=== PATIENT | female | born 1950 | race American Indian/Alaskan Native ===

== ENCOUNTER 2016-04-30 15:12 | Emergency (ER) | payer BC, MEDICAID, MEDICARE, OTHER ==
[2016-04-30 15:34] VITALS: BP 128/84
[2016-04-30] MEDS ORDERED: Acetaminophen/HYDROcodone 325-5 MG Tab PO ONE (16:20)
--- NOTE | 2016-05-01 09:32 | CR ---
INDICATION: FOOSH injury, pain right hand and wrist dorsum. RIGHT HAND: Three views of the right hand revealed somewhat demineralized appearance. There are suggested some mild degenerative changes with subchondral cystic change at the lunate - radiolunate joint. An acute fracture or dislocation was not identified. IMPRESSION: 1. No acute fracture or dislocation. 2. Osteoarthritis radiolunate joint. 3. Probable osteoporosis with demineralization suggested - correlate clinically. MTDD
--- NOTE | 2016-05-02 11:58 | ER ---
DATE SEEN: 04/30/2016 TIME SEEN: The patient was seen at 1535 hours. HISTORY OF PRESENT ILLNESS: This is a 65-year-old woman who was on the ice yesterday, slipped and fell, and the dorsum of her hand struck the ground with an outstretched hand injury, SANJANA. The patient has mild swelling in the dorsum of the hand, mild wrist discomfort, moderate hand discomfort. No compromised sensation. No decreased range of motion in her wrist or hand. She is right hand dominant. PAST MEDICAL HISTORY: No other serious illnesses. The patient is not taking medicines. No diabetes, heart disease, high blood pressure, asthma, or other serious illnesses. SOCIAL HISTORY: She is single. She is a . She does not smoke. REVIEW OF SYSTEMS: Otherwise, negative. ALLERGIES: She has allergies to naproxen, which causes swollen tongue, and ibuprofen does the same. PHYSICAL EXAMINATION: GENERAL: Very pleasant heartwarming woman, who is in no acute distress. HEENT: PERRLA intact. Pharynx without abnormality. LUNGS: Clear to auscultation. HEART: S1, S2. No murmur. ABDOMEN: Soft. No hepatosplenomegaly. EXTREMITIES: Right upper extremity, mild dorsum swelling to the hand, metacarpals 2, 3, 4, 5, mostly 2, 3, 4 and MP joints 2, 3, and 4. Range of motion of finger is normal. Capillary refill is normal. Radial and ulnar pulses negative. Mild discomfort to palpation to the dorsum of hand. No deformity noted in the bony structures. No pain in the palmar surface of the hand. Show Jumping In[employer] is intact but slightly decreased because of the discomfort she experienced. LABORATORY DATA: X-rays are negative. No evidence for fracture. ASSESSMENT: Contusion of hand with bruised soft tissues dorsum of hand. PLAN: Reassured. Use Christian bandage to diminish the swelling and help to decrease further swelling. When she is using her arm more extensively, she has a wrist splint to stabilize her wrist. Follow up with doctor in 1 to 2 weeks as needed. Use Tylenol as needed 1000 mg every 6 hours and/or less. Elevate the hand above her heart. Intermittently can use cool packs to diminish the swelling. /[id number] LS/ANGEL JACKSOND
== END 2016-04-30 16:24 | disposition home or self-care (01) ==
LOC: FB.ED 15:12
DX: S60.221A Contusion of right hand, initial encounter (principal); Z88.6 Allergy status to analgesic agent; Z88.8 Allergy status to other drugs, medicaments and biological substances; W00.0XXA Fall on same level due to ice and snow, initial encounter
CPT/HCPCS: 73130; 99282; 99284; A9270

== ENCOUNTER 2016-07-27 16:36 | Emergency (ER) | payer MEDICARE, MEDICAID ==
[2016-07-27] MEDS ORDERED: EPINEPHrine 1:1000 1 MG/ML SDV IM ONE (16:52)
[2016-07-27] MEDS ORDERED: methylPREDNISolone Sodium Succinate 125 MG/2 ML SDV IVPUSH ONE (16:53)
[2016-07-27] MEDS ORDERED: diphenhydrAMINE 50 MG/ML SDV IVPUSH ONE (16:53)
[2016-07-27] MEDS ORDERED: Sodium Chloride 0.9% 1,000 ML IV ONE (16:54)
[2016-07-27] MEDS ORDERED: EPINEPHrine 1:1000 1 MG/ML SDV ONE (16:55)
[2016-07-27] MEDS ORDERED: methylPREDNISolone Sodium Succinate 125 MG/2 ML SDV ONE (16:55)
[2016-07-27] MEDS ORDERED: Famotidine 20 MG Tab PO ONE (16:55)
[2016-07-27] MEDS ORDERED: Famotidine 20 MG Tab ONE (16:55)
[2016-07-27] MEDS ORDERED: diphenhydrAMINE 50 MG/ML SDV ONE (16:55)
--- NOTE | 2016-07-27 18:02 | EDM.PDOC ---
ED HPI GENERAL MEDICAL PROBLEM - General Chief Complaint: Allergic Reaction Stated Complaint: ALLERGIC REACTION Time Seen by Provider: 07/27/16 16:36 Source of Information: Reports: Patient History Limitations: Reports: Physical Impairment - History of Present Illness INITIAL COMMENTS - FREE TEXT/NARRATIVE: 65 y.o.w.f came by herself to the ed due to tongue swelling after she took Motrin. Pt had similar symptosm in the past. She feels "flush es well. No SOB, No chest pain, denies other acute medical issues. Onset: Today, Sudden Onset Date: 07/27/16 Onset Time: 15:00 Duration: Minutes:, Getting Worse Location: Reports: Face Quality: Reports: Pressure Severity: Moderate Improves with: Reports: None Worsens with: Reports: None - Related Data Allergies Allergy/AdvReac Type Severity Reaction Status Date / Time naproxen [From Aleve] Allergy Swollen Verified 04/30/16 15:23 Tongue Home Meds: Home Meds diphenhydrAMINE [Benadryl] 25 mg PO Q8H #9 bottle 07/27/16 [Rx] predniSONE [Prednisone] 20 mg PO DAILY #5 tablet 07/27/16 [Rx] Past Medical History HEENT History: Reports: Impaired Vision Other HEENT History: wears glasses - Infectious Disease History Infectious Disease History: Reports: Chicken Pox, Measles, Mumps - Past Surgical History Female Surgical History: Reports: Other (See Below) Social & Family History - Tobacco Use Smoking Status *Q: Never Smoker Second Hand Smoke Exposure: No - Caffeine Use Caffeine Use: Reports: Coffee - Recreational Drug Use Recreational Drug Use: No ED ROS ALLERGIC REACTION - Review of Systems Review Of Systems: See Below Constitutional: Reports: No Symptoms HEENT: Reports: Other (tongue swelling) Respiratory: Reports: No Symptoms Cardiovascular: Reports: No Symptoms Endocrine: Reports: No Symptoms GI/Abdominal: Reports: No Symptoms : Reports: No Symptoms Musculoskeletal: Reports: No Symptoms Skin: Reports: Rash Neurological: Reports: No Symptoms Psychiatric: Reports: No Symptoms Hematologic/Lymphatic: Reports: No Symptoms Immunologic: Reports: No Symptoms ED EXAM GENERAL NO PERIP PULSE - Physical Exam Exam: See Below Exam Limited By: No Limitations General Appearance: Alert, WD/WN, Mild Distress Eye Exam: Bilateral Eye: Normal Inspection Ears: Normal External Exam, Normal Canal Nose: Normal Inspection, Normal Mucosa Throat/Mouth: Normal Inspection, Normal Lips, Normal Teeth Head: Atraumatic, Normocephalic, Other (tongue swelling) Neck: Normal Inspection, Supple, Non-Tender Respiratory/Chest: No Respiratory Distress, Lungs Clear, Normal Breath Sounds Cardiovascular: Normal Peripheral Pulses, Regular Rate, Rhythm, No Edema GI/Abdominal: Normal Bowel Sounds, Soft, Non-Tender, No Organomegaly (Female) Exam: Deferred Rectal (Female) Exam: Deferred Back Exam: Normal Inspection, Full Range of Motion Extremities: Normal Inspection, Normal Range of Motion, Non-Tender Neurological: Alert, Oriented, CN II-XII Intact, Normal Cognition, Normal Gait Psychiatric: Normal Affect, Normal Mood Skin Exam: Warm, Dry, Intact, Normal Color, No Rash Lymphatic: No Adenopathy Course - Vital Signs Text/Narrative:: 65 y.o.w.f came by herself to the ed due to tongue swelling after she took Motrin. Pt had similar symptosm in the past. She feels "flush es well. No SOB, No chest pain, denies other acute medical issues. PE: Angioedema, tongue swelling after taking Motrin Angioedema Tx: Epi, solu medrol, benadryl and pepcid. Reexam: Improved Plan: D/C to home with instructions - Orders/Labs/Meds Labs: Laboratory Tests 07/27/16 07/27/16 Range/Units 17:00 17:00 WBC 8.5 (4.5-12.0) X10-3/uL RBC 5.11 (3.23-5.20) x10(6)uL Hgb 15.6 H (11.5-15.5) g/dL Hct 46.9 (30.0-51.3) % MCV 91.9 (80-96) fL MCH 30.5 (27.7-33.6) pg MCHC 33.2 (32.2-35.4) g/dL RDW 13.2 (11.5-15.5) % Plt Count 263 (125-369) X10(3)uL MPV 8.3 (7.4-10.4) fL Neut % (Auto) 47.2 (46-82) % Lymph % (Auto) 44.8 H (13-37) % [place] % (Auto) 5.5 (4-12) % Eos % (Auto) 2 (1.0-5.0) % Baso % (Auto) 0 (0-2) % Neut # (Auto) 4.0 (1.6-8.3) # Lymph # (Auto) 3.8 (0.6-5.0) # [place] # (Auto) 0.5 (0.0-1.3) # Eos # (Auto) 0.2 (0.0-0.8) # Baso # (Auto) 0.0 (0.0-0.2) # Sodium 134 L (135-145) mmol/L Potassium 3.5 (3.5-5.3) mmol/L Chloride 103 (100-110) mmol/L Carbon Dioxide 20 L (23-29) mmol/L BUN 18 (8-23) mg/dL Creatinine 0.7 (0.6-1.3) mg/dL Est Cr Clr Drug Dosing TNP Estimated GFR (MDRD) > 60 (>60) BUN/Creatinine Ratio 25.7 H (9-20) Glucose 131 H (80-116) mg/dL Calcium 9.0 (8.6-10.2) mg/dL Meds: Medications Discontinued Medications Generic Name Dose Route Start Last Admin Trade Name Freq PRN Reason Stop Dose Admin Diphenhydramine HCl 25 mg 07/27/16 16:53 Benadryl IVPUSH 07/27/16 16:54 ONETIME ONE Diphenhydramine HCl Confirm 07/27/16 16:55 Benadryl Administered 07/27/16 16:56 Dose 50 mg .ROUTE .STK-MED ONE Epinephrine HCl 0.3 mg 07/27/16 16:52 Adrenalin 1:1000 IM 07/27/16 16:53 ONETIME ONE Epinephrine HCl Confirm 07/27/16 16:55 Adrenalin 1:1000 Administered 07/27/16 16:56 Dose 1 mg .ROUTE .STK-MED ONE Famotidine Confirm 07/27/16 16:55 Pepcid Administered 07/27/16 16:56 Dose 20 mg .ROUTE .STK-MED ONE Sodium Chloride 1,000 mls @ 999 mls/hr 07/27/16 16:54 Normal Saline IV 07/27/16 17:54 .BOLUS ONE Methylprednisolone Sodium Succinate 125 mg 07/27/16 16:53 Solu-Medrol IVPUSH 07/27/16 16:54 ONETIME ONE Methylprednisolone Sodium Succinate Confirm 07/27/16 16:55 Solu-Medrol Administered 07/27/16 16:56 Dose 125 mg .ROUTE .STK-MED ONE Departure - Departure Time of Disposition: 18:04 Disposition: Home, Self-Care 01 Condition: good Clinical Impression: Angioedema Qualifiers: Encounter type: subsequent encounter Qualified Code(s): T78.3XXD - Angioneurotic edema, subsequent encounter - Discharge Information Prescriptions: diphenhydrAMINE [Benadryl] 25 mg PO Q8H #9 bottle predniSONE [Prednisone] 20 mg PO DAILY #5 tablet Referrals: PCP,None [Primary Care Provider] - Additional Instructions: Please take benadryl amd prednison as recommended. Please increase water intake , Please come back if your symptoms worsen acutely
[2016-07-27] MEDS ORDERED: predniSONE 20 MG Tab PO ONE (18:12)
[2016-07-27 19:30] VITALS: BP 120/66
== END 2016-07-27 19:05 | disposition home or self-care (01) ==
LOC: FB.ED 16:36
DX: T78.3XXD Angioneurotic edema, subsequent encounter (principal); Z88.8 Allergy status to other drugs, medicaments and biological substances; Z79.899 Other long term (current) drug therapy
CPT/HCPCS: 36415; 80048; 85025; 96361; 96372; 96374; 96375; 99284; A9270; J0171; J1200; J2930; J7040

== ENCOUNTER 2017-06-29 01:24 | Emergency (ER) | payer OTHER, MEDICAID ==
--- NOTE | 2017-06-29 02:07 | EDM.PDOC ---
ED HPI GENERAL MEDICAL PROBLEM - General Chief Complaint: Lower Extremity Injury/Pain Stated Complaint: LT ANKLE PAIN Time Seen by Provider: 06/29/17 01:50 Source of Information: Reports: Patient, Family History Limitations: Reports: No Limitations - History of Present Illness INITIAL COMMENTS - FREE TEXT/NARRATIVE: 66 y.o.f. fell a sleep at work while sitting, got up and hit her left foot. Now she is not able to apply weight onto her left foot. No other injuries, no N/V/D or dizziness. BP 145/52 Puls 68 RR 18 Puse 0x 98 on RA Temp 98F Onset Date: 06/28/17 Onset Time: 23:00 Duration: Minutes:, Intermittent Location: Reports: Lower Extremity, Left Quality: Reports: Ache, Burning, Dull Severity: Mild Improves with: Reports: Rest Worsens with: Reports: Movement Context: Reports: Trauma Associated Symptoms: Reports: No Other Symptoms LEFT FOOT Pain Score (Numeric/FACES): 8 - Related Data Allergies Allergy/AdvReac Type Severity Reaction Status Date / Time ibuprofen Allergy Swelling Verified 06/29/17 01:30 naproxen [From Aleve] Allergy Swollen Verified 06/29/17 01:31 Tongue Home Meds: Home Meds NK [No Known Home Meds] 06/29/17 [History] Past Medical History HEENT History: Reports: Impaired Vision Other HEENT History: wears glasses - Infectious Disease History Infectious Disease History: Reports: Chicken Pox, Measles, Mumps - Past Surgical History Female Surgical History: Reports: Other (See Below) Social & Family History - Tobacco Use Smoking Status *Q: Never Smoker Second Hand Smoke Exposure: No - Caffeine Use Caffeine Use: Reports: Coffee - Recreational Drug Use Recreational Drug Use: No Review of Systems - Review of Systems Review Of Systems: See Below Constitutional: Reports: No Symptoms Eyes: Reports: No Symptoms Ears: Reports: No Symptoms Nose: Reports: No Symptoms Mouth/Throat: Reports: No Symptoms Respiratory: Reports: No Symptoms Cardiovascular: Reports: No Symptoms GI/Abdominal: Reports: No Symptoms Genitourinary: Reports: No Symptoms Musculoskeletal: Reports: Foot Pain Skin: Reports: No Symptoms Neurological: Reports: No Symptoms Psychiatric: Reports: No Symptoms ED EXAM, GENERAL - Physical Exam Exam: See Below Exam Limited By: No Limitations General Appearance: Alert, WD/WN, Mild Distress Eye Exam: Bilateral Eye: Normal Inspection Ears: Normal External Exam Ear Exam: Bilateral Ear: Auricle Normal Nose: Normal Inspection Throat/Mouth: Normal Inspection Head: Atraumatic, Normocephalic Neck: Normal Inspection, Supple, Non-Tender Respiratory/Chest: No Respiratory Distress, Lungs Clear Cardiovascular: Normal Peripheral Pulses, Regular Rate, Rhythm Peripheral Pulses: 1+: Radial (R) GI/Abdominal: Normal Bowel Sounds, Soft, Non-Tender, No Organomegaly, No Mass, Pelvis Stable (Female) Exam: Deferred Rectal (Female) Exam: Deferred Back Exam: Normal Inspection, Full Range of Motion Extremities: Normal Inspection, Normal Range of Motion, Other (tender left foot) Neurological: Alert, Oriented, CN II-XII Intact, Normal Cognition, Abnormal Gait (due to left foot pain) Psychiatric: Normal Affect, Normal Mood Skin Exam: Warm, Dry, Intact, Normal Color, No Rash Lymphatic: No Adenopathy Course - Vital Signs Text/Narrative:: 66 y.o.f. fell a sleep at work while sitting, got up and hit her left foot. Now she is not able to apply weight onto her left foot. No other injuries, no N/V/D or dizziness. BP 145/52 Puls 68 RR 18 Puse 0x 98 on RA Temp 98F PE: Thin 66 y.o.f came by PC with a friend after she fell asleep at work and fell on her left foot, now unable to ambulate due to left foot pain Imaging: Left foot: NAD Labs: Not indicated Impression: Left foot sprain Tx; ICE, Crutches Reexam: Improved, pt was able to walk with crutches. Plan: D/C with instructions Last Recorded V/S: Last Vital Signs Temp 36.6 C 06/29/17 01:31 Pulse 68 06/29/17 01:31 Resp 18 06/29/17 01:31 BP 145/52 H 06/29/17 01:31 Pulse Ox 98 06/29/17 01:31 - Orders/Labs/Meds Orders: Active Orders 24 hr Category Date Time Status Foot Comp Min 3V Lt [CR] Stat Exams 06/29/17 01:35 Taken Departure - Departure Time of Disposition: 02:02 Disposition: Home, Self-Care 01 Condition: Good Clinical Impression: Sprain of foot, left Qualifiers: Encounter type: initial encounter Qualified Code(s): S93.602A - Unspecified sprain of left foot, initial encounter - Discharge Information Instructions: Crutch Use, Adult, [id number], Foot Sprain Referrals: Iris Gold NP [Primary Care Provider] - Forms: ED Department Discharge, ED Return to Work/School Form Additional Instructions: Please apply ic to lt left foot, please use crutches, please apply weight to left foot as tolerated, please f/u with your PMD in next 3 days, come back if your symptoms get worse acutely - My Orders Last 24 Hours: My Active Orders 06/29/17 01:35 Foot Comp Min 3V Lt [CR] Stat - Assessment/Plan Last 24 Hours: My Active Orders 06/29/17 01:35 Foot Comp Min 3V Lt [CR] Stat
[2017-06-29 02:43] VITALS: BP 145/52
--- NOTE | 2017-06-29 11:07 | CR ---
INDICATION: Injury, pain, and swelling. LEFT FOOT: Three views of the left foot were obtained 06/29/2017 and revealed minimal degenerative changes at the first metatarsophalangeal joint and at the DIP joints of the second, third, and fourth toes. A small to moderate sized plantar calcaneal spur is noted with a tiny posterior calcaneal spur. No evidence of an acute fracture or dislocation was identified. IMPRESSION: 1. No acute fracture or dislocation. 2. Minimal osteoarthritis. 3. Calcaneal spurs. RENETTAD
== END 2017-06-29 02:15 | disposition home or self-care (01) ==
LOC: FB.ED 01:24
DX: S93.602A Unspecified sprain of left foot, initial encounter (principal); Z88.8 Allergy status to other drugs, medicaments and biological substances; W19.XXXA Unspecified fall, initial encounter; Y99.0 Civilian activity done for income or pay
CPT/HCPCS: 73630-LT; 99283

== ENCOUNTER 2022-06-13 07:32 | Day surgery (SDC) | payer MEDICARE ==
[2022-06-13] MEDS ORDERED: Lactated Ringers 1,000 ML IV PRN (07:33)
[2022-06-13] MEDS ORDERED: Midazolam 1 MG/ML 2 ML SDV IV ONE (07:33)
[2022-06-13] MEDS ORDERED: Sodium Chloride 0.9% 10 ML Syringe FLUSH PRN (07:33)
[2022-06-13] MEDS ORDERED: fentaNYL 100 MCG/2 ML SDV IV ONE (07:33)
[2022-06-13] MEDS ORDERED: Labetalol 100 MG/20 ML MDV IV ONE (07:33)
[2022-06-13 07:51] VITALS: BP 151/82; PULSE 86
[2022-06-13] MEDS ORDERED: acetaZOLAMIDE 500 MG Cap.ER PO ONE (09:30)
== END 2022-06-13 10:25 | disposition home or self-care (01) ==
LOC: FB.SDS 07:32
PROVIDERS: ATTEND Ophthalmology
DX: H25.9 Unspecified age-related cataract (principal); H26.8 Other specified cataract; F41.8 Other specified anxiety disorders; J44.9 Chronic obstructive pulmonary disease, unspecified; E78.5 Hyperlipidemia, unspecified; Z85.3 Personal history of malignant neoplasm of breast; Z79.899 Other long term (current) drug therapy; Z88.8 Allergy status to other drugs, medicaments and biological substances
CPT/HCPCS: 00142; A9270-GY; J2250; J3010; J3490; V2632

== ENCOUNTER 2022-06-27 07:51 | Day surgery (SDC) | payer MEDICARE ==
[~2022-06-27 07:51] MED LIST: Lactated Ringers 1,000 ML IV PRN; Sodium Chloride 0.9% 10 ML Syringe FLUSH PRN
[2022-06-27] MEDS ORDERED: Sodium Chloride 0.9% 10 ML Syringe IV ONE (07:52)
[2022-06-27] MEDS ORDERED: fentaNYL 100 MCG/2 ML SDV IV ONE (07:52)
[2022-06-27] MEDS ORDERED: Midazolam 1 MG/ML 2 ML SDV IV ONE (07:52)
[2022-06-27] MEDS ORDERED: acetaZOLAMIDE 500 MG Cap.ER PO ONE (09:30)
[2022-06-27 16:21] VITALS: BP 171/80; PULSE 67
== END 2022-06-27 10:15 | disposition home or self-care (01) ==
LOC: FB.SDS 07:51
PROVIDERS: ATTEND Ophthalmology
DX: H26.9 Unspecified cataract (principal); H21.81 Floppy iris syndrome; D64.9 Anemia, unspecified; F41.8 Other specified anxiety disorders; J44.9 Chronic obstructive pulmonary disease, unspecified; E78.5 Hyperlipidemia, unspecified; Z79.899 Other long term (current) drug therapy; Z88.6 Allergy status to analgesic agent; Z85.3 Personal history of malignant neoplasm of breast
CPT/HCPCS: 00142; A9270-GY; J2250; J3010; J3490; V2632